=== PATIENT | female | born 1965 | race Caucasian/White ===

== ENCOUNTER 2020-07-14 09:55 | Outpatient (CLI) | payer BC, SELFPAY ==
--- NOTE | ~2020-07-14 | MM_ITS ---
EXAMINATION: MM screening sheryl BI w reno HISTORY: Screening mammogram, family history of breast cancer in her mother and sister. TECHNIQUE: Craniocaudal and mediolateral oblique 3-D tomosynthesis images were obtained and synthetic 2-D images were generated. CAD analysis was submitted and interpreted. COMPARISON: 08/19/2018, 08/07/2017, 04/09/2016 BREAST PARENCHYMAL COMPOSITION: There are scattered areas of fibroglandular density. FINDINGS: Scattered benign-appearing calcifications are present. There is no evidence of suspicious m ass, calcification, or architectural distortion to suggest malignancy in either breast. There has bee n no suspicious interval change. IMPRESSION: 1. No mammographic evidence of malignancy. 2. Recommend routine screening mammography in one year. BI-RADS Category 1: Negative Reviewed, dictated and finalized at location A. IOPULMONARY TECHNOLOGIST
== END 2020-07-14 09:56 | disposition home or self-care (01) ==
LOC: ANHIMG 09:58
PROVIDERS: PCP Family Medicine; Visit Provider Family Medicine
DX: Z12.31 Encounter for screening mammogram for malignant neoplasm of breast (principal)
CPT/HCPCS: 77063; 77067

== ENCOUNTER → 2020-12-29 08:32 | Outpatient (CLI) | payer BC, SELFPAY ==
--- NOTE | ~2020-12-29 | XR_ITS ---
XR hip LT 2V w AP pelvis DATE: 12/29/2020 09:05 INDICATION: Left hip pain TECHNIQUE: AP, lateral left hip. AP pelvis. COMPARISON: None FINDINGS: The pubic symphysis and sacroiliac joints are intact. No pelvic fracture or bone destructio n is evident. There are occasional areas of focal sclerosis of the right iliac bone and right acetabu lum, which may be bone islands. Osseous chronic metastatic deposits are not excluded. Consider correl ation with radionuclide bone scan as clinically appropriate. No fracture, dislocation, avascular necrosis or bone destruction is detected. IMPRESSION: Scattered sclerotic foci of the right ilium and acetabular; consider bone islands versus osteosclerotic metastatic disease Reviewed, dictated and finalized at location A. IMPRESSION: Scattered sclerotic foci of the right ilium and acetabular; conside r bone islands versus osteosclerotic metastatic disease
== END ==
PROVIDERS: PCP Family Medicine; Visit Provider Family Medicine
DX: M25.552 Pain in left hip (principal)
CPT/HCPCS: 73502

== ENCOUNTER 2021-03-23 09:48 | Outpatient (CLI) | payer BC, SELFPAY ==
--- NOTE | ~2021-03-23 | NM_ITS ---
EXAMINATION: NM bone scan whole body DATE: 03/23/2021 13:08 INDICATION: Abnormal findings on diagnostic imaging from limbs presenting with left hip pain TECHNIQUE: 23.8 mCi Tc-99m HDP was administered intravenously. Delayed whole-body scintigrams were o btained. COMPARISON: Left hip and pelvis radiograph dated 12/29/2020 FINDINGS: Mild likely degenerative joint centered uptake at the right midfoot. Shielded extravasated activity a t the left antecubital fossa with small amount of uptake within a left axillary lymph node. Otherwise physiologic distribution of bone and soft tissue activity. Specifically no abnormal activity or phot openic defects at the left hip to suggest an acute osseous abnormality. IMPRESSION: 1. Mild likely degenerative increased uptake at the right midfoot. Otherwise normal distribution of b one activity with no abnormal uptake at the left hip. Reviewed, dictated and finalized at location A. IMPRESSION: 1. Mild likely degenerative increased uptake at the right midfoot. Otherwise no rmal distribution of bone activity with no abnormal uptake at the left hip.
== END 2021-03-23 09:49 | disposition home or self-care (01) ==
LOC: ANHIMG 09:51
PROVIDERS: PCP Family Medicine; Visit Provider Family Medicine
DX: R93.6 Abnormal findings on diagnostic imaging of limbs (principal)
CPT/HCPCS: 78306; A9561

== ENCOUNTER 2021-08-29 15:55 | Outpatient (CLI) | payer BC, SELFPAY ==
--- NOTE | ~2021-08-29 | MM_ITS ---
EXAMINATION: MM screening sheryl BI w reno HISTORY: Screening mammogram TECHNIQUE: Craniocaudal and mediolateral oblique 3-D tomosynthesis images were obtained and synthetic 2-D images were generated. CAD analysis was submitted and interpreted. COMPARISON: July 14, 2020, August 19, 2018, August 07, 2017 bilateral screening mammogram examination s BREAST PARENCHYMAL COMPOSITION: There are scattered areas of fibroglandular density. FINDINGS: There is no evidence of suspicious mass, calcification, or architectural distortion to sugg est malignancy in either breast. There has been no suspicious interval change. IMPRESSION: 1. No mammographic evidence of malignancy. 2. Recommend routine screening mammography in one year. BI-RADS Category 1: Negative Reviewed, dictated and finalized at location A.
== END 2021-08-29 15:56 | disposition home or self-care (01) ==
PROVIDERS: PCP Family Medicine; Visit Provider Nurse Practitioner Gerontology
DX: Z12.31 Encounter for screening mammogram for malignant neoplasm of breast (principal)
CPT/HCPCS: 77063; 77067

== ENCOUNTER → 2022-09-06 10:55 | Outpatient (CLI) | payer BC, SELFPAY ==
--- NOTE | ~2022-09-06 | XR_ITS ---
XR thoracic spine 3V DATE: 09/06/2022 11:17 INDICATION: Thoracic back pain TECHNIQUE: AP, lateral, swimmer views COMPARISON: None FINDINGS: Osteopenia. There is mild anterolisthesis at C3-4. There is moderate degenerative disc disease at C4-5, highly se marilee degenerative disease and mild retrolisthesis at C5-6. There is mild dextroscoliosis and degenerative spurring of the thoracic spine. The thoracic pedicles are intact. No thoracic spine fracture or dislocation or bone destruction is de tected. No paraspinal soft tissue thickening. IMPRESSION: Thoracic dextroscoliosis Degenerative change of the thoracic spine Osteopenia Cervical spondylosis Reviewed, dictated and finalized at location B.
== END ==
PROVIDERS: PCP Family Medicine; Visit Provider Family Medicine
DX: M85.88 Other specified disorders of bone density and structure, other site (principal); M47.892 Other spondylosis, cervical region; M51.34 Other intervertebral disc degeneration, thoracic region
CPT/HCPCS: 72072

== ENCOUNTER 2022-12-24 07:21 | Outpatient (CLI) | payer BC, SELFPAY ==
--- NOTE | ~2022-12-24 | MM_ITS ---
EXAMINATION: MM screening sheryl BI w reno HISTORY: Screening TECHNIQUE: Craniocaudal and mediolateral oblique 3-D tomosynthesis images were obtained and synthetic 2-D images were generated. CAD analysis was submitted and interpreted. COMPARISON: Comparison to multiple prior studies sequentially, with oldest reviewed study dated 2014. BREAST PARENCHYMAL COMPOSITION: There are scattered areas of fibroglandular density. FINDINGS: There are no suspicious masses, calcifications or architectural distortion in the right javier ast to suggest malignancy. There is focal asymmetry with possible architectural distortion in the upp er outer quadrant of the left breast. IMPRESSION: 1. Focal asymmetry with possible architectural distortion upper outer quadrant of the left breast, mi ddle third. 2. Additional mammographic views and possible breast ultrasound are recommended. BI-RADS Category 0: Incomplete: Needs additional imaging evaluation. Reviewed, dictated and finalized at location A. IMPRESSION: 1. Focal asymmetry with possible architectural distortion upper outer quadrant of the left breast, middle third. 2. Additional mammographic views and possible breast ultrasound are recommended . BI-RADS Category 0: Incomplete: Needs additional imaging evaluation.
== END 2022-12-24 07:22 | disposition home or self-care (01) ==
PROVIDERS: PCP Family Medicine; Visit Provider Family Medicine
DX: Z12.31 Encounter for screening mammogram for malignant neoplasm of breast (principal); R92.8 Other abnormal and inconclusive findings on diagnostic imaging of breast
CPT/HCPCS: 77063; 77067

== ENCOUNTER 2023-01-17 12:16 | Outpatient (CLI) | payer BC, SELFPAY ==
--- NOTE | ~2023-01-17 | MMUS_ITS ---
EXAMINATION: MM diagnostic sheryl LT w reno, US breast LT limited HISTORY: Left breast focal asymmetry and possible architectural distortion on screening mammogram TECHNIQUE: Additional 3-D tomosynthesis images of the left breast were performed and synthetic 2-D im ages were generated. CAD analysis was submitted and interpreted. High resolution limited left breast ultrasound was performed. COMPARISON: 12/24/2022, 08/29/2021, 07/14/2020 FINDINGS: MAMMOGRAPHIC FINDINGS: There is a return to baseline fibroglandular appearance with spot compression of the left breast in t he area questioned on screening mammogram. ULTRASOUND: There is no evidence of focal abnormal solid or cystic mass in the vicinity of the mammographic findi ng in question. IMPRESSION: 1. No mammographic or sonographic evidence of malignancy. 2. Recommend routine screening mammography in one year. BI-RADS Category 1: Negative Reviewed, dictated and finalized at location A. IMPRESSION: 1. No mammographic or sonographic evidence of malignancy. 2. Recommend routine screening mammography in one year. BI-RADS Category 1: Negative
== END 2023-01-17 12:17 | disposition home or self-care (01) ==
LOC: ANHIMG 12:18
PROVIDERS: PCP Family Medicine; Visit Provider Physician Assistant
DX: R92.8 Other abnormal and inconclusive findings on diagnostic imaging of breast (principal)
CPT/HCPCS: 76642; 77061; 77065; G0279